=== PATIENT | male | born 1940 | race Caucasian/White ===

== ENCOUNTER 2021-11-12 03:05 | Observation (INO) | payer MEDICARE ==
[2021-11-12] MEDS ORDERED: Nitroglycerin 0.4 MG TAB (25 Tab Bottle) SL PRN (03:07)
[2021-11-12 03:14] VITALS: BMI 24.3
[2021-11-12] MEDS ORDERED: Enoxaparin Sodium 80 MG/0.8 ML SYRINGE SC SCH (04:45)
[2021-11-12 05:14] LABS: Cardiac Risk 3.1 (Less than 4.5)
[2021-11-12 05:21] LABS: Troponin I Less than 0.010 ng/mL (< 0.028)
[2021-11-12] MEDS ORDERED: Nitroglycerin 2% Ointment 1 INCH/1 GM Packet TOP SCH (06:00)
[2021-11-12 08:43] LABS: Troponin I Less than 0.010 ng/mL (< 0.028)
[2021-11-12] MEDS ORDERED: Hydrochlorothiazide 25 MG TAB PO SCH (09:00)
[2021-11-12] MEDS ORDERED: Aspirin 81 mg Enteric Coated Tablet PO SCH (09:00)
[2021-11-12] MEDS ORDERED: Losartan 25 MG TAB PO SCH (09:00)
[2021-11-12] MEDS ORDERED: Enoxaparin Sodium 40 MG/0.4 ML SYRINGE SC SCH ×2 (09:00→21:00)
[2021-11-12] MEDS ORDERED: Finasteride 5 MG TAB PO SCH (09:00)
[2021-11-12] MEDS ORDERED: Metoprolol Tartrate 25 MG TAB PO SCH (09:00)
[2021-11-12 13:18] VITALS: BP 180/84; TEMP 99.5
[2021-11-12 15:42] LABS: SARS-CoV-2 PCR by NAA Not Detected (NotDetected)
[2021-11-12] MEDS ORDERED: Atorvastatin Calcium 40 MG TAB PO SCH (21:00)
== END 2021-11-12 13:48 | disposition home or self-care (01) ==
LOC: CSHTELE 03:05
PROVIDERS: ADMIT Family Medicine; ATTEND Family Medicine
DX: R07.9 Chest pain, unspecified (principal); Z95.1 Presence of aortocoronary bypass graft; Z79.899 Other long term (current) drug therapy; Z79.82 Long term (current) use of aspirin; Z87.891 Personal history of nicotine dependence; Z95.5 Presence of coronary angioplasty implant and graft; I10 Essential (primary) hypertension; E78.5 Hyperlipidemia, unspecified; N40.0 Benign prostatic hyperplasia without lower urinary tract symptoms; Z20.822 Contact with and (suspected) exposure to COVID-19
CPT/HCPCS: 80061; 84484; 93005; 93306; 96372; G0378; U0003; U0005; 36415; 93010; J1650